=== PATIENT | male | born 1995 | race Asian ===

== ENCOUNTER 2017-03-12 00:52 | Emergency (ER) | payer OTHER ==
[2017-03-12] MEDS ORDERED: diphenhydrAMINE 50 MG CAP PO ONE (02:08)
[2017-03-12] MEDS ORDERED: diphenhydrAMINE 12.5 MG/5 ML UDCUP PO ONE (02:09)
[2017-03-12] MEDS ORDERED: diphenhydrAMINE 25 MG CAP PO ONE (02:13)
[2017-03-12 02:15] VITALS: BP 124/78; PULSE 55; RESP 18; TEMP 98.4; O2SAT 97
--- NOTE | 2017-03-12 02:16 | EDPHY ---
H & P Stated Complaint: c/o itching rash on elbows beginning yest am, now both arms/ trunk affected Time Seen by Provider: 03/12/17 02:02 HPI/ROS: Chief Complaint: Hives HPI: 21-year-old male began having hives earlier today. The continued to spread on his trunk and upper arms. He reached the maximum about an hour ago. He has not taken any medication for this. Now stating he feels much better. Denies any shortness of breath or cough. Does have a history of allergies but no known new exposures. He is up here staying with a friend but has stayed with this friend in the past without any difficulty. No new foods, detergents, dyes, or any other exposures. ROS: 10 point Review of Systems is negative except as noted in the HPI. PMH: Allergies Social History: No smoking, occasional alcohol, no recreational drug use Family History: non-contributory Physical Exam: Gen: Awake, Alert, No Distress HEENT: Nose: no rhinorrhea Eyes: PERRLA, EOMI Mouth: Moist mucosa Neck: Supple, no JVD Chest: nontender, lungs clear to auscultation Heart: S1, S2 normal, no murmur Abd: Soft, non-tender, no guarding Back: no CVA tenderness, no midline tenderness Ext: no edema, non-tender, he has got some small hives in his right shoulder Skin: no rash Neuro: CN II-XII intact, Sensation grossly intact, Strength 5/5 in bilateral upper and lower extremities - Medical/Surgical History Hx Asthma: No Hx Chronic Respiratory Disease: No Hx Diabetes: No Hx Cardiac Disease: No Hx Renal Disease: No Hx Cirrhosis: No Hx Alcoholism: No Hx HIV/AIDS: No Hx Splenectomy or Spleen Trauma: No Other PMH: none - Social History Smoking Status: Current every day smoker Constitutional: Initial Vital Signs Temperature (C) 36.6 C 03/12/17 00:58 Heart Rate 53 L 03/12/17 00:58 Respiratory Rate 14 03/12/17 00:58 Blood Pressure 123/84 H 03/12/17 00:58 O2 Sat (%) 98 03/12/17 00:58 O2 Delivery Mode Room Air Allergies/Adverse Reactions: No Known Allergies Allergy (Unverified 03/12/17 01:01) Home Medications: Medication Instructions Recorded NK [No Known Home Meds] 03/12/17 Medical Decision Making ED Course/Re-evaluation: Patient told me a picture earlier where he had extensive hives over his entire trunk and upper arms. A no with exposures. He is better now without any treatment. Will given 50 of Benadryl. He will follow up with primary care physician in little 10 for further evaluation possible allergy testing. Departure - Departure Disposition: Home, Routine, Self-Care Clinical Impression: Urticaria Condition: Good Instructions: Urticaria (ED) Additional Instructions: You may take Benadryl, 50 mg, every 6 hr as needed for rash or itching. Return to the emergency depart for any difficulty breathing, cough, fevers, chills, or any other concerns. Follow up with primary care physician at home for further evaluation and possible allergy testing. Referrals: NONE *PRIMARY CARE P,. [Primary Care Provider] - As per Instructions
== END 2017-03-12 02:23 | disposition home or self-care (01) ==
DX: L50.9 Urticaria, unspecified (principal); F17.200 Nicotine dependence, unspecified, uncomplicated